=== PATIENT | male | born 1970 | race Caucasian/White ===

== ENCOUNTER 2022-07-24 11:34 | Emergency (ER) | payer OTHER ==
[~2022-07-24] VITALS: Ht 182.9 cm; Wt 89.1 kg
[2022-07-24 11:54] VITALS: BP 153/97
--- NOTE | 2022-07-24 12:00 | NUR ---
C/O SWELLING AND PAIN IN THE 3RD AND 4TH FINGER S/P USING A POLISHING WHEEL YESTERDAY AT WORK. PER PT HIS FINGERS GOT CAUGHT IN THE WHEEL. WOKE UP TODAY AND FINGER IS SWOLLEN. PMH-NONE ALLERGY-OPIOIDS REACTION HIVES AND RESPIRATORY SYMPTOMS
[2022-07-24] MEDS ORDERED: IBUPROFEN 600 MG TAB PO ONE (12:40)
[2022-07-24] MEDS ORDERED: IBUP-2213 PO (13:49)
--- NOTE | 2022-07-24 14:04 | NUR ---
Patient discharged with v/s stable. Written and verbal after care instructions ABOUT MUSCLE PAIN AND CONTUSION given and explained. Patient alert, oriented and verbalized understanding of instructions. Ambulatory with steady gait. All questions addressed prior to discharge. ID band removed. Patient advised to follow up with PMD. Rx of MOTRIN given. Patient educated on indication of medication including possible reaction and side effects. Opportunity to ask questions provided and answered.
== END 2022-07-24 14:04 | disposition home or self-care (01) ==
LOC: MED 11:34
DX: S63.619A Unspecified sprain of unspecified finger, initial encounter (principal); W23.0XXA Caught, crushed, jammed, or pinched between moving objects, initial encounter; Y93.89 Activity, other specified; Y92.89 Other specified places as the place of occurrence of the external cause; Y99.8 Other external cause status
CPT/HCPCS: 73130; 99283